=== PATIENT | female | born 1950 | race Two or more races ===

== ENCOUNTER 2017-05-18 13:20 | Inpatient (IN) | payer OTHER ==
[~2017-05-18] VITALS: Ht 154.9 cm; Wt 59.2 kg
[2017-05-18 15:53] LABS: RED CELL DISTRIBUTION WIDTH 14.5 % (11.5-14.5)
[2017-05-18 15:55] LABS: PLATELET COUNT 119 x10^3mcL (130-400)
[2017-05-18 16:00] LABS: UA SPECIFIC GRAVITY 1.015 (1.005-1.035); microscopic required? YES; urine erythrocyte 2+ (NEGATIVE)
[2017-05-18 16:00] LABS: CALCIUM 8.4 mg/dL (8.5-10.1); CARBON DIOXIDE 23.5 mmol/L (21-32); CREATININE SERUM 1.4 mg/dL (0.6-1.0); POTASSIUM SERUM 3.4 mmol/L (3.5-5.1)
[2017-05-18 16:12] LABS: ALBUMIN 3.7 g/dL (3.4-5.0); BILIRUBIN TOTAL 0.63 mg/dL (0.20-1.00); C REACTIVE PROTEIN 6.6 mg/dL (<=0.9); TOTAL PROTEIN, SERUM 6.4 g/dL (6.4-8.2)
[2017-05-18 16:15] LABS: T3 TOTAL 0.55 ng/mL
[2017-05-18] MEDS ORDERED: GLEEVEC400 MG PO (16:28)
[2017-05-18] MEDS ORDERED: NAMENDA10 M3 PO (16:28)
[2017-05-18] MEDS ORDERED: PREDNISONE2.5 MG (16:29)
[2017-05-18 16:38] LABS: BAND NEUTROPHIL 10 % (0-10); METAMYELOCTE 4 % (0-2); MONOCYTE 3 % (0-7); SEGMENTED NEUTROPHILS 70 % (37-75)
[2017-05-18 16:41] LABS: rbc morphology (normal/abnorm) ABNORMAL (NORMAL)
[2017-05-18 16:42] LABS: PLATELET MORPHOLOGY LARGE PLATELET SEEN
[2017-05-18 16:44] LABS: ERYTHROCYTE SED RATE 15 mm/hr (0-30); FREE THYROXINE INDEX 2.3 ug/dL (1.4-4.5); T4(THYROXINE) 6.3 ug/dL (4.7-13.3)
[2017-05-18 17:29] LABS: CK-MB < 0.5 ng/mL (0-3.6); CREATINE KINASE 140 U/L (26-192)
[2017-05-18 17:42] VITALS: BP 106/58
[2017-05-18 18:06] LABS: MAGNESIUM 1.8 mg/dL (1.8-2.4); PHOSPHOROUS 3.3 mg/dL (2.5-4.9)
[2017-05-18 18:08] LABS: CHOLESTEROL/HDL RATIO 1.6
[2017-05-18 18:16] LABS: AMPHETAMINE QUAL UR NONE DETECTED (NEG <=1000)
[2017-05-18 18:34] VITALS: BP 106/58
[2017-05-18 20:25] VITALS: BP 107/59
[2017-05-19 04:45] VITALS: BP 108/51
[2017-05-19 07:51] LABS: BASOPHIL % 0.7 % (0-2)
[2017-05-19 07:52] LABS: PLATELET COUNT 100 x10^3mcL (130-400); RED CELL DISTRIBUTION WIDTH 15.1 % (11.5-14.5)
[2017-05-19 08:21] LABS: IRON 19 ug/dL (50-170); TOTAL IRON BINDING CAPACITY 241 ug/dL (250-450)
[2017-05-19 08:27] VITALS: Ht 154.9 cm; Wt 59.2 kg
[2017-05-19 08:30] VITALS: BP 120/67
[2017-05-19 08:33] LABS: RED BLOOD CELLS 2.41 M/mm3 (4.10-5.10)
[2017-05-19 08:34] LABS: CALCIUM 7.6 mg/dL (8.5-10.1); CARBON DIOXIDE 19.2 mmol/L (21-32); POTASSIUM SERUM 3.4 mmol/L (3.5-5.1)
[2017-05-19 14:15] VITALS: BP 117/60
[2017-05-19] MEDS ORDERED: FUROSEMIDE20 MG PO (17:11)
[2017-05-19] MEDS ORDERED: LYRICA200 MG PO (17:13)
[2017-05-19] MEDS ORDERED: NAMENDA XR28 MG PO (17:15)
[2017-05-19 17:16] VITALS: BP 126/60
[2017-05-19 20:56] VITALS: BP 106/58
[2017-05-20 05:06] VITALS: BP 114/63
[2017-05-20 06:49] LABS: BASOPHIL % 0.4 % (0-2)
[2017-05-20 06:51] LABS: PLATELET COUNT 92 x10^3mcL (130-400); RED CELL DISTRIBUTION WIDTH 14.9 % (11.5-14.5)
[2017-05-20 07:16] LABS: CARBON DIOXIDE 19.6 mmol/L (21-32); CHLORIDE SERUM 99 mmol/L (98-107); CREATININE SERUM 0.8 mg/dL (0.6-1.0); GFR1 > 60 mL/min; GLUCOSE SERUM 102 mg/dL (74-106); POTASSIUM SERUM 3.3 mmol/L (3.5-5.1); SODIUM SERUM 130 mmol/L (136-145)
[2017-05-20 08:30] VITALS: BP 121/66
[2017-05-20 13:50] VITALS: BP 139/81
[2017-05-20 18:45] VITALS: BP 127/70
[2017-05-20 21:29] VITALS: BP 123/70
[2017-05-20 23:00] VITALS: BP 185/68
[2017-05-21 04:45] VITALS: BP 137/87
[2017-05-21 06:46] LABS: BASOPHIL % 0.2 % (0-2); RED CELL DISTRIBUTION WIDTH 14.4 % (11.5-14.5)
[2017-05-21 06:47] LABS: CALCIUM 7.9 mg/dL (8.5-10.1); CARBON DIOXIDE 21.6 mmol/L (21-32); CHLORIDE SERUM 101 mmol/L (98-107); CREATININE SERUM 0.8 mg/dL (0.6-1.0); GFR1 > 60 mL/min; GLUCOSE SERUM 92 mg/dL (74-106); POTASSIUM SERUM 3.7 mmol/L (3.5-5.1); SODIUM SERUM 134 mmol/L (136-145)
[2017-05-21 06:54] LABS: PLATELET COUNT 96 x10^3mcL (130-400)
[2017-05-21 08:00] VITALS: BP 134/77
[2017-05-21] MEDS ORDERED: LEVAQUIN750 MG PO (08:27)
[2017-05-21] MEDS ORDERED: CLEOCIN HCL150 MG PO (08:28)
[2017-05-21] MEDS ORDERED: THI100 PO (08:29)
[2017-05-21] MEDS ORDERED: FOL1 PO (08:30)
[2017-05-21] MEDS ORDERED: LAC PO (10:43)
[2017-05-21] MEDS ORDERED: FERROUS SULFAT325 M2 PO (10:47)
[2017-05-21] MEDS ORDERED: VITAMIN C100 M2 PO (10:48)
[2017-05-21 11:47] VITALS: BP 134/77
== END 2017-05-21 13:28 | disposition home or self-care (01) | DRG 177 ==
LOC: ED 13:20 → DU 16:26
PROVIDERS: Family Medicine; Specialist
DX: J69.0 Pneumonitis due to inhalation of food and vomit (principal); I50.43 Acute on chronic combined systolic (congestive) and diastolic (congestive) heart failure; N17.0 Acute kidney failure with tubular necrosis; E87.1 Hypo-osmolality and hyponatremia; I42.2 Other hypertrophic cardiomyopathy; R80.9 Proteinuria, unspecified; R31.9 Hematuria, unspecified; E87.6 Hypokalemia; E78.5 Hyperlipidemia, unspecified; D53.9 Nutritional anemia, unspecified; G30.9 Alzheimer's disease, unspecified; F02.80 Dementia in other diseases classified elsewhere, unspecified severity, without behavioral disturbance, psychotic disturbance, mood disturbance, and anxiety; Z68.25 Body mass index [BMI] 25.0-25.9, adult; Z86.73 Personal history of transient ischemic attack (TIA), and cerebral infarction without residual deficits
CPT/HCPCS: 83880; 84439; 87804; 94150; J1956; J3490; J7030; J7506; J7512; J7613; J7620; J7644; Q0092